=== PATIENT | female | born 1995 | race Caucasian/White ===

== ENCOUNTER 2017-05-10 08:33 | Day surgery (SDC) | payer BC ==
[~2017-05-10] VITALS: Ht 167.6 cm; Wt 54.0 kg
[2017-05-10] MEDS ORDERED: ONDANSETRON HCL 4 MG/2 ML VIAL IVP ONE (09:32)
[2017-05-10] MEDS ORDERED: KETOROLAC TROMETHAMINE 30 MG VIAL IVP ONE (09:32)
[2017-05-10] MEDS ORDERED: PROPOFOL 200MG/ 20ML VIAL (DIPRIVAN) IV ONE (09:32)
[2017-05-10] MEDS ORDERED: MIDAZOLAM HCL 5 MG/5 ML VIAL IVP ONE (09:32)
[2017-05-10] MEDS ORDERED: NS IRRIG SOLN 1000 ML IR ONE (09:32)
[2017-05-10] MEDS ORDERED: fentaNYL CITRATE/PF 100 MCG/2 ML AMP IVP ONE (09:32)
[2017-05-10] MEDS ORDERED: SEVOFLURANE 15 MIN GAS INH ONE (09:32)
[2017-05-10] MEDS ORDERED: SILVER NITRATE APPLICATOR 1 STICK STICK..EA. TP ONE (09:32)
[2017-05-10] MEDS ORDERED: OXYTOCIN 10 UNIT/ML VIAL IV ONE (09:32)
[2017-05-10] MEDS ORDERED: LR 1,000 ML IV SCH (10:07)
[2017-05-10] MEDS ORDERED: ONDANSETRON HCL 4 MG/2 ML VIAL IVP PRN ×2 (10:15→10:30)
[2017-05-10] MEDS ORDERED: KETOROLAC TROMETHAMINE 30 MG VIAL IVP PRN (10:15)
[2017-05-10] MEDS ORDERED: MEPERIDINE HCL/PF 25 MG/ML DISP.SYRIN IVP PRN ×2 (10:15)
[2017-05-10] MEDS ORDERED: HYDROmorphone 1 MG INJ. 1 MG/ML AMPUL IVP PRN (10:15)
[2017-05-10] MEDS ORDERED: HYDROmorphone 2 MG/ML VIAL IVP PRN ×2 (10:15)
[2017-05-10] MEDS ORDERED: HYDROmorphone 2 MG TAB PO PRN (10:30)
[2017-05-10] MEDS ORDERED: PROMETHAZINE HCL 25 MG/ML AMP IM PRN (10:30)
[2017-05-10] MEDS ORDERED: OXYCODONE/ACETAMINOPHEN 5-325 TABLET PO PRN (10:30)
[2017-05-10 11:07] VITALS: BP_SYST 102
== END 2017-05-10 12:17 | disposition home or self-care (01) ==
LOC: SDS 08:33 → SMU 08:34 → SDS 12:17
PROVIDERS: ATTEND Obstetrics & Gynecology
DX: O02.1 Missed abortion (principal); Z83.3 Family history of diabetes mellitus
CPT/HCPCS: 36415; 59820; 86886; 86900; 86901; 88305; J7120; J1885; J2250; J2405; J2590; J2704; J3010

== ENCOUNTER 2017-05-13 13:25 | Emergency (ER) | payer BC ==
[~2017-05-13] VITALS: Ht 167.6 cm; Wt 54.4 kg
[2017-05-13 13:36] VITALS: BP_SYST 122
[2017-05-13 14:28] LABS: BASOPHILS % (AUTO) 0.4 % (0.0-2.0); EOSINOPHILS # (AUTO) 0.1 K/uL (0.0-0.4); EOSINOPHILS % (AUTO) 0.9 % (0.0-4.0); HEMATOCRIT 36.1 % (36-48); HEMOGLOBIN 12.1 g/dL (12.0-16.0); LYMPHOCYTES # (AUTO) 0.9 K/uL (1.0-5.5); LYMPHOCYTES % (AUTO) 10.9 % (20.5-51.5); MEAN CORPUSCULAR HEMOGLOBIN 29 pg (27-31); MEAN CORPUSCULAR HGB CONC 34 % (32-36); MEAN CORPUSCULAR VOLUME 85 fL (79.0-98.0); MONOCYTES # (AUTO) 0.6 K/uL (0.0-1.0); MONOCYTES % (AUTO) 8.1 % (1.7-9.3); NEUTROPHILS # (AUTO) 6.2 K/uL (1.8-7.7); NEUTROPHILS % (AUTO) 79.7 % (40.0-70.0); PLATELET COUNT (AUTO) 268 K/uL (130-430); RED BLOOD CELL COUNT(AUTO) 4.25 MIL/uL (4.2-6.2); RED CELL DISTRIBUTION WIDTH 13.9 % (9.0-15.0); WHITE BLOOD COUNT (AUTO) 7.9 K/uL (4.8-10.8)
[2017-05-13 14:42] LABS: CALCIUM 9.1 mg/dL (8.4-11.0); CREATININE 0.79 mg/dL (0.55-1.30); POTASSIUM 4.1 mmol/L (3.5-5.1)
[2017-05-13 14:46] LABS: ALBUMIN 4.1 g/dL (3.4-4.8); TOTAL BILIRUBIN 0.3 mg/dL (0.0-1.0); TOTAL PROTEIN, SERUM 7.4 g/dL (6.4-8.3)
[2017-05-13 15:00] LABS: PROTHROMBIN TIME 10.8 SECS (9.5-12.5)
[2017-05-13 15:19] LABS: BILIRUBIN,URINE NEGATIVE (NEGATIVE); BLOOD, URINE NEGATIVE (NEGATIVE); CLARITY/URINE CLEAR (CLEAR); COLOR,URINE YELLOW (YELLOW); GLUCOSE,URINE NEGATIVE (NEGATIVE); KETONES,URINE NEGATIVE (NEGATIVE); LEUKOCYTE ESTERASE ,URINE TRACE (NEGATIVE); NITRITE, URINE NEGATIVE (NEGATIVE); PH,URINE 7.5 (5.0-8.0); PROTEIN URINE NEGATIVE (NEGATIVE); UROBILINOGEN,URINE 0.2 (0.2-1.0)
[2017-05-13 15:51] LABS: BACTERIA,URINE FEW /HPF (None Seen); RBC,URINE NONE SEEN /HPF (0-3)
[2017-05-13 15:52] LABS: MUCUS,URINE None Seen /LPF (None Seen)
[2017-05-13 16:02] VITALS: BP_SYST 120
== END 2017-05-13 16:02 | disposition home or self-care (01) ==
LOC: SED 14:00
DX: N39.0 Urinary tract infection, site not specified (principal); K59.00 Constipation, unspecified
CPT/HCPCS: 36415; 80053; 81000-TC; 81025; 83690-TC; 84703; 85025; 85610-TC; 85730-TC; 87086; 99285

== ENCOUNTER 2018-10-21 08:15 | Observation (INO) | payer BC ==
[~2018-10-21] VITALS: Ht 167.6 cm; Wt 76.2 kg
== END 2018-10-21 09:35 | disposition home or self-care (01) ==
LOC: SPU 08:15
PROVIDERS: ADMIT Specialist; ATTEND Specialist
DX: Z34.93 Encounter for supervision of normal pregnancy, unspecified, third trimester (principal); Z3A.39 39 weeks gestation of pregnancy
CPT/HCPCS: 81002; G0378

== ENCOUNTER 2018-10-24 07:10 | Inpatient (IN) | payer BC ==
[~2018-10-24] VITALS: Ht 167.6 cm; Wt 76.2 kg
[2018-10-24] MEDS ORDERED: LR 1,000 ML IV SCH (07:27)
[2018-10-24] MEDS ORDERED: OXYTOCIN/0.9 % SODIUM CHLORIDE 1,000 ML IV SCH (07:27)
[2018-10-24] MEDS ORDERED: LR 1,000 ML IV ONE (07:27)
[2018-10-24] MEDS ORDERED: TERBUTALINE SULFATE 1 MG/ML VIAL SUBCUT ONE (07:30)
[2018-10-24] MEDS ORDERED: NALBUPHINE HCL 10 MG/ML AMP IVP PRN (07:30)
[2018-10-24] MEDS ORDERED: fentaNYL CITRATE/PF 100 MCG/2 ML AMP ONE ×2 (07:41→14:49)
[2018-10-24] MEDS ORDERED: ROPIVACAINE 0.2% 100 ML ONE ×2 (07:41→14:49)
[2018-10-24 08:10] LABS: BASOPHILS % (AUTO) 0.2 % (0.0-2.0); EOSINOPHILS # (AUTO) 0.1 K/uL (0.0-0.4); EOSINOPHILS % (AUTO) 0.6 % (0.0-4.0); HEMATOCRIT 36.7 % (36-48); LYMPHOCYTES # (AUTO) 1.6 K/uL (1.0-5.5); LYMPHOCYTES % (AUTO) 18.5 % (20.5-51.5); MEAN CORPUSCULAR HEMOGLOBIN 29 pg (27-31); MEAN CORPUSCULAR HGB CONC 33 % (32-36); MEAN CORPUSCULAR VOLUME 90 fL (79.0-98.0); MONOCYTES # (AUTO) 0.4 K/uL (0.0-1.0); MONOCYTES % (AUTO) 4.9 % (1.7-9.3); NEUTROPHILS # (AUTO) 6.6 K/uL (1.8-7.7); NEUTROPHILS % (AUTO) 75.8 % (40.0-70.0); PLATELET COUNT (AUTO) 269 K/uL (130-430); RED CELL DISTRIBUTION WIDTH 13.3 % (9.0-15.0); WHITE BLOOD COUNT (AUTO) 8.7 K/uL (4.8-10.8)
[2018-10-24] MEDS ORDERED: LR 500 ML IV ONE (08:32)
[2018-10-24 08:35] VITALS: BP_SYST 131
[2018-10-24] MEDS ORDERED: FENT2mCg/mL-ROPIVA0.2%/NS EPID 150 ML EP SCH (08:45)
[2018-10-24] MEDS ORDERED: PHYTONADIONE 1 MG/0.5 ML SYR IM ONE (22:30)
[2018-10-24] MEDS ORDERED: ERYTHROMYCIN BASE 0.5% EYE OINT...G. OP ONE (22:30)
[2018-10-25] MEDS ORDERED: OXYTOCIN/0.9 % SODIUM CHLORIDE 1,000 ML IV SCH (00:18)
[2018-10-25] MEDS ORDERED: OXYTOCIN/0.9 % SODIUM CHLORIDE 1,000 ML IV ONE (00:18)
[2018-10-25] MEDS ORDERED: DERMOPLAST SPRAY TP PRN (00:30)
[2018-10-25] MEDS ORDERED: LANOLIN 7 GM OINT. TP PRN (00:30)
[2018-10-25] MEDS ORDERED: WITCH HAZEL LEAF 1 MED.PAD MED.PAD TP PRN (00:30)
[2018-10-25] MEDS ORDERED: DOCUSATE SODIUM 100 MG CAPSULE PO PRN (00:30)
[2018-10-25] MEDS ORDERED: IBUPROFEN 600 MG TABLET PO SCH (01:00)
[2018-10-25] MEDS: IBUPROFEN 600 MG TABLET PO SCH ×2 (12:08→17:53)
[2018-10-26 07:36] LABS: HEMATOCRIT 28.1 % (36-48); HEMOGLOBIN 9.6 g/dL (12.0-16.0)
== END 2018-10-26 09:49 | disposition home or self-care (01) | DRG 807 ==
LOC: SPU 07:10
PROVIDERS: ADMIT Obstetrics & Gynecology; ATTEND Specialist
PROC: 10E0XZZ Delivery of Products of Conception, External Approach (ICD-10-PCS; principal; 2018-10-24)
PROC: 0KQM0ZZ Repair Perineum Muscle, Open Approach (ICD-10-PCS; 2018-10-24)
PROC: 3E0R3BZ Introduction of Anesthetic Agent into Spinal Canal, Percutaneous Approach (ICD-10-PCS; 2018-10-24)
PROC: 00HU33Z Insertion of Infusion Device into Spinal Canal, Percutaneous Approach (ICD-10-PCS; 2018-10-24)
DX: O42.92 Full-term premature rupture of membranes, unspecified as to length of time between rupture and onset of labor (principal); Z37.0 Single live birth; O70.1 Second degree perineal laceration during delivery; Z3A.39 39 weeks gestation of pregnancy
CPT/HCPCS: 36415; 81002-TC; 85018-TC; 85025; 86592; 86886; 86900; 86901; J2590; J2795; J3010; J7120